=== PATIENT | female | born 1990 | race Caucasian/White ===

== ENCOUNTER 2023-10-27 14:33 | Emergency (ER) | payer BC ==
[2023-10-27 15:32] VITALS: BP 138/84; PULSE 65; RESP 16; TEMP 98.9; BMI 29.5
[2023-10-27] MEDS ORDERED: IBUPROFEN 600 MG TABLET (FP) PO ONE (15:33)
[2023-10-27] MEDS: IBUPROFEN 600 MG TABLET (FP) PO ONE (15:58)
== END 2023-10-27 17:29 | disposition home or self-care (01) ==
LOC: FER 14:33
DX: S49.91XA Unspecified injury of right shoulder and upper arm, initial encounter (principal); S09.90XA Unspecified injury of head, initial encounter; R42 Dizziness and giddiness; W01.198A Fall on same level from slipping, tripping and stumbling with subsequent striking against other object, initial encounter; Y93.89 Activity, other specified; Y92.838 Other recreation area as the place of occurrence of the external cause
CPT/HCPCS: 70450-TC; 73010-TC-FY; 73030-TC-RT-FY; 93005; 99285-25